=== PATIENT | female | born 1970 | race African-American/Black ===

== ENCOUNTER 2017-09-12 09:47 | Emergency (ER) | payer OTHER ==
[~2017-09-12] VITALS: Ht 162.6 cm; Wt 95.7 kg
[2017-09-12 11:50] VITALS: BP 144/97
== END 2017-09-12 11:50 | disposition home or self-care (01) ==
LOC: ED 09:47
DX: Z03.89 Encounter for observation for other suspected diseases and conditions ruled out (principal); I10 Essential (primary) hypertension; E11.9 Type 2 diabetes mellitus without complications; E78.00 Pure hypercholesterolemia, unspecified

== ENCOUNTER 2020-01-10 12:05 | Observation (INO) | payer OTHER ==
[~2020-01-10] VITALS: Ht 165.1 cm; Wt 89.8 kg
[2020-01-10 12:35] VITALS: Ht 165.1 cm; Wt 89.8 kg
[2020-01-10 13:35] LABS: PLATELET COUNT 446 x10^3mcL (130-400)
[2020-01-10 13:43] LABS: CALCIUM 9.6 mg/dL (8.5-10.1); CARBON DIOXIDE 24.3 mmol/L (21-32); CHLORIDE SERUM 95 mmol/L (98-107); CREATININE SERUM 0.9 mg/dL (0.6-1.0); GFR1 > 60 mL/min; GLUCOSE SERUM 426 mg/dL (74-106); SODIUM SERUM 130 mmol/L (136-145)
[2020-01-10 13:47] LABS: ALKALINE PHOSPHATASE 277 U/L (46-116); ALT/SGPT 649 U/L (14-59); AST/SGOT 373 U/L (15-37); BILIRUBIN TOTAL 2.1 mg/dL (0.20-1.00)
[2020-01-10 13:50] LABS: ALBUMIN 2.9 g/dL (3.4-5.0); CHOLESTEROL 206 mg/dL (<200); HDL CHOLESTEROL 26 mg/dL (40-60)
[2020-01-10 14:42] LABS: microscopic required? NO
[2020-01-10 15:49] LABS: UA SPECIFIC GRAVITY <=1.005 (1.005-1.035); urine erythrocyte NEGATIVE (NEGATIVE)
[2020-01-10 18:24] VITALS: BP 135/87
[2020-01-10 21:22] VITALS: BP 138/76
[2020-01-11 05:59] VITALS: BP 156/87
[2020-01-11 09:17] VITALS: BP 148/84
[2020-01-11] MEDS ORDERED: IPRATROPIUM BROM3 M2 HHN (11:21)
[2020-01-11] MEDS ORDERED: CLARITIN10 MG PO (11:22)
[2020-01-11] MEDS ORDERED: NASAL MIST126 ML (11:25)
[2020-01-11] MEDS ORDERED: GUAIFEN-CODEINE5 ML PO (11:25)
[2020-01-11 12:32] LABS: ALKALINE PHOSPHATASE 248 U/L (46-116); ALT/SGPT 531 U/L (14-59); AST/SGOT 328 U/L (15-37); BILIRUBIN TOTAL 2.19 mg/dL (0.20-1.00); CALCIUM 8.9 mg/dL (8.5-10.1); CARBON DIOXIDE 25.5 mmol/L (21-32); CHLORIDE SERUM 101 mmol/L (98-107); CREATININE SERUM 0.8 mg/dL (0.6-1.0); GFR1 > 60 mL/min; GLUCOSE SERUM 263 mg/dL (74-106); LIPASE 193 IU/L (73-393); SODIUM SERUM 136 mmol/L (136-145); TOTAL PROTEIN, SERUM 7.3 g/dL (6.4-8.2)
[2020-01-11 12:39] VITALS: BP 175/100
[2020-01-11 12:51] LABS: ALBUMIN 2.4 g/dL (3.4-5.0)
[2020-01-11 16:25] VITALS: BP 185/108
[2020-01-11 17:00] VITALS: BP 138/86
[2020-01-11 17:49] VITALS: BP 135/82
== END 2020-01-11 18:45 | disposition home or self-care (01) ==
LOC: ED 12:05 → DU 16:00
PROVIDERS: Emergency Medicine; ADMIT Hospitalist
DX: J06.9 Acute upper respiratory infection, unspecified (principal); R63.0 Anorexia; E11.65 Type 2 diabetes mellitus with hyperglycemia; R74.0 Nonspecific elevation of levels of transaminase and lactic acid dehydrogenase [LDH]; I10 Essential (primary) hypertension; K21.9 Gastro-esophageal reflux disease without esophagitis; J40 Bronchitis, not specified as acute or chronic
CPT/HCPCS: 82962; 87804; G0378; J1815; J7030; Q0092

== ENCOUNTER 2020-01-20 21:46 | Emergency (ER) | payer OTHER ==
[~2020-01-20] VITALS: Ht 165.1 cm; Wt 91.6 kg
[~2020-01-20 21:46] MED LIST: CLARITIN10 MG PO; GUAIFEN-CODEINE5 ML PO; IPRATROPIUM BROM3 M2 HHN; NASAL MIST126 ML
[2020-01-20 23:03] LABS: microscopic required? NO
[2020-01-20 23:13] LABS: UA SPECIFIC GRAVITY 1.015 (1.005-1.035); urine erythrocyte NEGATIVE (NEGATIVE)
[2020-01-20 23:13] LABS: BASOPHIL % 0.5 % (0-2); PLATELET COUNT 307 x10^3mcL (130-400)
[2020-01-20 23:14] LABS: RED CELL DISTRIBUTION WIDTH 15.6 % (11.5-14.5)
[2020-01-20 23:29] LABS: CALCIUM 9.6 mg/dL (8.5-10.1); CHLORIDE SERUM 95 mmol/L (98-107); GFR1 > 60 mL/min; GLUCOSE SERUM 426 mg/dL (74-106); SODIUM SERUM 132 mmol/L (136-145)
[2020-01-20 23:34] LABS: ALKALINE PHOSPHATASE 352 U/L (46-116); ALT/SGPT 253 U/L (14-59); AMYLASE 61 U/L (25-115); AST/SGOT 103 U/L (15-37); BILIRUBIN TOTAL 1.8 mg/dL (0.20-1.00); LIPASE 400 IU/L (73-393); TOTAL PROTEIN, SERUM 8.1 g/dL (6.4-8.2)
[2020-01-20 23:35] LABS: ALBUMIN 3.1 g/dL (3.4-5.0)
[2020-01-21 01:59] VITALS: BP 139/81
== END 2020-01-21 01:57 | disposition home or self-care (01) ==
LOC: ED 21:46
PROVIDERS: Emergency Medicine
DX: E11.65 Type 2 diabetes mellitus with hyperglycemia (principal); I10 Essential (primary) hypertension; E78.00 Pure hypercholesterolemia, unspecified
CPT/HCPCS: 82962; J1815; J7030

== ENCOUNTER 2020-07-23 12:23 | Emergency (ER) | payer OTHER ==
[~2020-07-23] VITALS: Ht 162.6 cm; Wt 98.9 kg
[2020-07-23 12:43] VITALS: Ht 162.6 cm; Wt 98.9 kg
[2020-07-23 15:24] LABS: CALCIUM 8.7 mg/dL (8.5-10.1); CARBON DIOXIDE 30.2 mmol/L (21-32); CHLORIDE SERUM 101 mmol/L (98-107); CREATININE SERUM 0.8 mg/dL (0.6-1.0); GFR1 > 60 mL/min; GLUCOSE SERUM 242 mg/dL (74-106); POTASSIUM SERUM 3.6 mmol/L (3.5-5.1); SODIUM SERUM 137 mmol/L (136-145)
[2020-07-23 15:26] LABS: BASOPHIL % 0.2 % (0-2); PLATELET COUNT 240 x10^3mcL (130-400); RED CELL DISTRIBUTION WIDTH 14.1 % (11.5-14.5)
[2020-07-23 15:29] LABS: ALBUMIN 3.6 g/dL (3.4-5.0); ALKALINE PHOSPHATASE 48 U/L (46-116); ALT/SGPT 18 U/L (14-59); AMYLASE 54 U/L (25-115); AST/SGOT 14 U/L (15-37); BILIRUBIN TOTAL 0.53 mg/dL (0.20-1.00); LIPASE 177 IU/L (73-393)
[2020-07-23 16:25] VITALS: BP 151/63
== END 2020-07-23 16:25 | disposition home or self-care (01) ==
LOC: ED 12:23
PROVIDERS: Emergency Medicine
DX: K52.9 Noninfective gastroenteritis and colitis, unspecified (principal); I10 Essential (primary) hypertension; E11.9 Type 2 diabetes mellitus without complications; E78.00 Pure hypercholesterolemia, unspecified
CPT/HCPCS: 82962; J1885; J2405; J7030